=== PATIENT | male | born 1960 | race Caucasian/White ===

== ENCOUNTER → 2021-09-08 06:22 | Outpatient (CLI) | payer SELFPAY | PROVIDERS: PCP Nurse Practitioner; Visit Provider Nurse Practitioner | DX: L84 Corns and callosities (principal) | CPT/HCPCS: 87070; 87077; 87186; 87205 ==

== ENCOUNTER → 2022-07-04 15:26 | Outpatient (CLI) | payer SELFPAY ==
[2022-07-04 18:38] LABS: Basophils # 0.1 K/mm3 (0-0.2); Basophils % 1.1 % (0.1-2.0); Eosinophils # 0.3 K/mm3 (0.0-0.4); Eosinophils % 3.6 % (0.1-12.0); Hematocrit 39.4 % (42.0-52.0); Hemoglobin 12.8 g/dL (14.1-18.0); Lymphocytes # 2.9 K/mm3 (0.7-4.5); Lymphocytes % 34.8 % (10-50); Mean Corpuscular HGB Conc 32.6 g/dL (31.8-35.4); Mean Corpuscular Hemoglobin 31.9 pg (27.0-31.2); Mean Corpuscular Volume 97.7 fl (80-94); Mean Platelet Volume 9.2 fl (7.4-10.4); Monocytes # 0.6 K/mm3 (0.1-1.0); Monocytes % 6.8 % (1.7-9.3); Neutrophils # 4.4 K/mm3 (1.8-7.8); Neutrophils % 53.8 % (37.0-80.0); Platelet Count 347 K/mm3 (142-424); Red Blood Count 4.03 M/mm3 (4.60-6.20); Red Cell Distribution Width 13.6 % (11.5-17.5); White Blood Count 8.2 K/mm3 (4.8-10.8)
== END ==
PROVIDERS: PCP Nurse Practitioner; Visit Provider Nurse Practitioner
DX: J35.1 Hypertrophy of tonsils (principal); R59.0 Localized enlarged lymph nodes
CPT/HCPCS: 85025

== ENCOUNTER → 2022-07-06 08:28 | Outpatient (CLI) | payer SELFPAY ==
--- NOTE | 2022-07-06 08:29 | US_ITS ---
FINAL REPORT TECHNIQUE: Real-time grayscale and color ultrasound of the soft tissues of the neck was performed. CLINICAL HISTORY: left cervical LAD and left tonsillar hypertrophy COMPARISON: None FINDINGS: Ultrasound images of the area of concern in the neck were obtained. Color Doppler images were submitted. There are several mildly enlarged bilateral lymph nodes, largest on the right measures 1.7 cm in length in largest on the left measures 3.6 cm in length. These have the appearance consistent with reactive nodes. IMPRESSION: Several mildly enlarged bilateral lymph nodes with appearance consistent with reactive nodes Reviewed, Interpreted and Dictated by Erick Castro III, MD Transcribed by Shavonne Bunn Authenticated and [facility]
== END ==
LOC: RAD 08:29
PROVIDERS: PCP Nurse Practitioner; Visit Provider Nurse Practitioner
DX: J35.1 Hypertrophy of tonsils (principal); R59.0 Localized enlarged lymph nodes
CPT/HCPCS: 76536

== ENCOUNTER 2023-08-14 11:00 | Outpatient (CLI) | payer SELFPAY ==
[2023-08-14 19:36] LABS: Alanine Aminotransferase 15 U/L (12-78); Albumin Level 4.4 g/dl (3.5-5.0); Albumin/Globulin Ratio 1.5 (1.1-1.8); Alkaline Phosphatase 63 U/L (38-126); Anion Gap 13.9 mEq/L (5-15); Aspartate Amino Transferase 28 U/L (17-59); Bilirubin,Total 0.3 mg/dl (0.2-1.3); Blood Urea Nitrogen 29 mg/dl (9-20); Calcium 9.7 mg/dl (8.4-10.2); Carbon Dioxide 27 mmol/L (22.0-30.0); Chloride 102 mmol/L (98-107); Estimated Glomerular Filt Rate 41 ml/min (>60); GFR (African American) 50 ML/MIN (>60); Globulin 2.9 g/dL (1.3-3.2); Glucose 91 mg/dl (74-100); Potassium 4.9 mmoL/L (3.5-5.1); Sodium 138 mmol/L (136-145); Total Protein,Serum 7.3 g/dl (6.3-8.2)
[2023-08-14 20:26] LABS: Vitamin B12 231 pg/mL (239-931)
[2023-08-15 10:40] LABS: Thyroid Stimulating Hormone 1.79 uIU/mL (0.465-4.68)
[2023-08-26 12:44] LABS: 1,25 Dihydroxy Vitamin D 24 pg/mL (.); 1,25-Dihydroxy, Vitamin D-2 <10 pg/mL (.); 1,25-Dihydroxy, Vitamin D-3 24 pg/mL (.)
== END 2023-08-14 23:59 | disposition home or self-care (01) ==
LOC: LAB.DROPOF 08-15 11:00
PROVIDERS: PCP Family Medicine; Visit Provider Family Medicine
DX: I73.9 Peripheral vascular disease, unspecified (principal); F17.210 Nicotine dependence, cigarettes, uncomplicated; I10 Essential (primary) hypertension; R53.1 Weakness; Z68.1 Body mass index [BMI] 19.9 or less, adult
CPT/HCPCS: 80053; 82607; 82652; 84443

== ENCOUNTER 2023-09-17 10:32 | Outpatient (CLI) | payer SELFPAY ==
[2023-09-17 19:49] LABS: Chloride 108 mmol/L (98-107)
[2023-09-17 19:50] LABS: Potassium 4.4 mmoL/L (3.5-5.1); Sodium 139 mmol/L (136-145)
[2023-09-17 19:52] LABS: Anion Gap 10.4 mEq/L (5-15); Blood Urea Nitrogen 30 mg/dl (9-20); Carbon Dioxide 25 mmol/L (22.0-30.0); Estimated Glomerular Filt Rate 44 ml/min (>60); GFR (African American) 53 ML/MIN (>60)
[2023-09-17 19:53] LABS: Chol/HDL Ratio 3.5 (1-3.5); Cholesterol 123 mg/dl (140-200); Glucose 74 mg/dl (74-100); HDL Cholesterol 35 mg/dl (40-60); Triglycerides 101 mg/dl (30-150); VLDL Cholesterol 20 mg/dL (0-40)
[2023-09-17 20:05] LABS: Direct LDL Cholesterol 54.51 mg/dL (100-129)
[2023-09-17 20:07] LABS: Free T4 (Free Thyroxine) 0.82 ng/dl (0.78-2.19)
[2023-09-17 20:20] LABS: Thyroid Stimulating Hormone 1.54 uIU/mL (0.465-4.68)
== END 2023-09-17 23:59 | disposition home or self-care (01) ==
LOC: LAB.DROPOF 09-18 10:32
PROVIDERS: PCP Nurse Practitioner; Visit Provider Nurse Practitioner
DX: I10 Essential (primary) hypertension (principal); E78.5 Hyperlipidemia, unspecified; Z72.0 Tobacco use
CPT/HCPCS: 80048; 80061; 84439; 84443

== ENCOUNTER 2024-06-10 09:16 | Outpatient (CLI) | payer SELFPAY ==
[2024-06-10 19:58] LABS: Alanine Aminotransferase 12 U/L (12-78); Albumin Level 3.9 g/dl (3.5-5.0); Albumin/Globulin Ratio 1.6 (1.1-1.8); Alkaline Phosphatase 66 U/L (38-126); Anion Gap 9.7 mEq/L (5-15); Aspartate Amino Transferase 23 U/L (17-59); Bilirubin,Total 0.3 mg/dl (0.2-1.3); Blood Urea Nitrogen 26 mg/dl (9-20); Calcium 8.9 mg/dl (8.4-10.2); Carbon Dioxide 24 mmol/L (22.0-30.0); Chloride 110 mmol/L (98-107); Chol/HDL Ratio 3.8 (1-3.5); Cholesterol 124 mg/dl (140-200); Estimated Glomerular Filt Rate 47 ml/min (>60); GFR (African American) 57 ML/MIN (>60); Globulin 2.5 g/dL (1.3-3.2); Glucose 88 mg/dl (74-100); HDL Cholesterol 33 mg/dl (40-60); Potassium 4.7 mmoL/L (3.5-5.1); Sodium 139 mmol/L (136-145); Total Protein,Serum 6.4 g/dl (6.3-8.2); Triglycerides 98 mg/dl (30-150); VLDL Cholesterol 20 mg/dL (0-40)
[2024-06-10 20:10] LABS: Direct LDL Cholesterol 57.74 mg/dL (100-129)
== END 2024-06-10 23:59 | disposition home or self-care (01) ==
LOC: LAB.DROPOF 06-12 12:45
PROVIDERS: PCP Nurse Practitioner; Visit Provider Nurse Practitioner
DX: E78.5 Hyperlipidemia, unspecified (principal); I73.9 Peripheral vascular disease, unspecified; I10 Essential (primary) hypertension
CPT/HCPCS: 80053; 80061